=== PATIENT | male | born 2000 | race Caucasian/White ===

== ENCOUNTER → 2022-04-07 10:26 | Outpatient (CLI) | payer OTHER, SELFPAY ==
--- NOTE | 2022-04-07 10:34 | DI.RAD.S_ITS ---
PROCEDURE: XR KNEE RT 3V INDICATIONS: Eval and Treat TECHNIQUE: 3 views of the knee were acquired. COMPARISON: None. FINDINGS: Bones: No fractures or dislocations. There is no patellar dislocation or subluxation. No suspicious bony lesions. Soft tissues: No significant joint effusion. No suspicious soft tissue calcifications. IMPRESSION: Unremarkable radiographic examination of right knee. If indicated, MRI of knee can be done for evaluation of internal derangement. Dictated by: Rick Leary M.D. on 04/07/2022 at 12:25 Approved by: Rick Leary M.D. on 04/07/2022 at 12:26
== END ==
PROVIDERS: PCP Family Medicine; Referring Provider Family Medicine; Visit Provider Family Medicine
DX: S83.91XA Sprain of unspecified site of right knee, initial encounter (principal); M25.561 Pain in right knee
CPT/HCPCS: 73562

== ENCOUNTER → 2022-06-07 09:19 | Outpatient (CLI) | payer OTHER, SELFPAY ==
--- NOTE | 2022-06-07 09:21 | DI.MRI.S_ITS ---
PROCEDURE: MR KNEE RT WO CON INDICATIONS: Persistent and continued anterior right knee pain with effus TECHNIQUE: Noncontrast sagittal PD fast spin echo and T2 fast spin echo with fat saturation, sagittal 3-D FLASH with fat saturation; coronal T1 spin echo and PD fast spin echo with fat saturation, and axial PD fast spin echo with fat saturation through the knee. COMPARISON: [facility], CR, XR KNEE RT 3V, 04/07/2022, 11:02. FINDINGS: Image quality: Excellent. Menisci: Medial meniscus is intact. 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 Cruciate ligaments: The anterior and posterior cruciate ligaments appear intact. Medial structures: The medial collateral ligament appears intact. The posterior oblique ligament, semimembranosus tendon insertions, oblique popliteal ligament, and meniscocapsular junction appear intact. Visualized portions of the pes anserinus tendons appear normal. No abnormal bursal fluid. Lateral structures: The lateral collateral ligament, long and short heads of the biceps femoris tendon appear intact. The popliteus tendon appears normal; the popliteofibular ligament appears intact. The posterosuperior and anteroinferior popliteomeniscal fascicles appear intact. The arcuate and fabellofibular ligaments appear intact, on either side of the lateral inferior geniculate artery. Iliotibial band appears normal. Anterior structures: The quadriceps and patellar tendons appear intact. Mild T2 signal elevation within the patellar tendon at the patellar insertion site. Patellar alignment is normal. No femoral trochlear dysplasia or ventral trochlear prominence. No edema in the infrapatellar fat pad. Bones and cartilage: No bone marrow contusions or fractures. Articular cartilage fibrillation overlies the medial and lateral patellar facets as well as the patellar apex. Joint space: There is physiologic knee joint fluid. No Ryan's cyst. Normal appearing synovial plicae are incidentally noted. IMPRESSION: 1. No internal derangement. 2. Mild patellar tendinitis. 3. Discoid lateral meniscus without tear. Dictated by: Sarthak Turner M.D. on 06/07/2022 at 11:00 Approved by: Sarthak Turner M.D. on 06/07/2022 at 11:01
== END ==
PROVIDERS: PCP Family Medicine; Referring Provider Family Medicine; Visit Provider Family Medicine
DX: M23.300 Other meniscus derangements, unspecified lateral meniscus, right knee (principal); M70.51 Other bursitis of knee, right knee; M76.51 Patellar tendinitis, right knee
CPT/HCPCS: 73721